=== PATIENT | male | born 1955 | race Caucasian/White ===

== ENCOUNTER 2021-04-06 09:02 | Emergency (ER) | payer OTHER, SELFPAY ==
[2021-04-06 09:05] VITALS: BP 173/96; PULSE 70; RESP 16; TEMP 35.9; O2SAT 95; BMI 43.0
--- NOTE | 2021-04-06 10:28 | RAD_ITS ---
STUDY: X-RAY CHEST REASON FOR EXAM: Male, 65 years old. Headaches. Altered gait. TECHNIQUE: Single AP portable view of the chest. COMPARISON: None. FINDINGS: EKG electrodes are seen. The lungs are clear and expanded. There is no demonstrated pleural abnormality. Sternal cerclage wires and vascular clips are present from a prior sternotomy and coronary artery bypass graft procedure (CABG). Normal mediastinum and sabrina. Normal visualized pulmonary arteries. Normal visualized aortic arch and descending thoracic aorta. Normal visualized thoracic spine. Normal visualized ribs, clavicles, and shoulders. There is no demonstrated abnormality of the visualized soft tissue structures of the upper abdomen. RAD/Chest 1 View (Portable) IMPRESSION: No acute abnormality is seen. Electronically Signed: Jay Jay Maynard MD at 11:14 EDT , Service support ,
--- NOTE | 2021-04-06 10:28 | CT_ITS ---
STUDY: CT BRAIN WITHOUT CONTRAST REASON FOR EXAM: Male, 65 years old. Altered mental status RADIATION DOSAGE (If Supplied By Facility): CTDIvol = ( 44.99 ) mGy, DLP = ( 829.85 ) mGycm TECHNIQUE: Transaxial CT imaging of the brain was performed without administration of intravenous contrast material. Individualized dose optimization techniques were used for this CT. COMPARISON: No relevant priors. FINDINGS: Normal soft tissue structures. Normal calvarium. There is evidence of a moderate-sized acute on subacute right subdural hematoma overlying the right frontal temporal and parietal lobes. The largest width of the subdural measures 1.9 cm. There is evidence of a midline shift from right to left measuring 1.3 cm. There is a dilatation of the left temporal horn and decreased size of the right temporal horn. This is indicative of mass effect and possible early herniation. Normal basal ganglia and thalami. Normal brainstem. Normal cerebellum. Normal visualized paranasal sinuses. CT/Brain/Head without Contrast IMPRESSION: Moderate size acute on subacute right subdural hematoma overlying the right frontotemporal and parietal lobes with shift of the midline from right to left of 1.3 centimeter. There is compression of the right temporal horn and dilatation of left temporal horn. Herniation should be ruled out. N.B. : The above Results were Read Back by Jay Jay Maynard MD to Shahbaz Prado MD, and understanding confirmed on 04/06/2021 11:11:52 (ET). Electronically Signed: Jay Jay Maynard MD at 11:13 EDT , Service support ,
--- NOTE | 2021-04-06 10:28 | EKG12_ITS ---
Test Reason : CONFUSON Blood Pressure : / mmHG Vent. Rate : 072 BPM Atrial Rate : 072 BPM P-R Int : 150 ms QRS Dur : 090 ms QT Int : 380 ms P-R-T Axes : 044 008 120 degrees QTc Int : 416 ms Normal sinus rhythm T wave abnormality, consider lateral ischemia Abnormal ECG Confirmed by JORGE REESE, SUGEY ([id number]), photographic editor [employer]ENCH ([id number]) on 04/07/2021 9:03:12 AM Referred By: DORA Confirmed By:SUGEY PATEL MD
--- NOTE | 2021-04-06 10:35 | EDS_ITS ---
HPI History of Present Illness Chief Complaint: Confusion Informant: patient Narrative Narrative: 65-year-old male presents to the emergency department with altered mental status. states that he had been having occipital headaches. She notes that last week he had a dental extraction and the headaches have been more temporal now on the right side. She states that his gait has become more shuffling. He is having episodes where he is very forgetful about conversations he has had. He has gotten lost driving. She states that he saw primary care yesterday have a CT scan scheduled for later this week. Patient denies any vision changes. He is able to use utensils and write appropriately. Only new medication with Motrin following the tooth extraction. Patient notes that on Monday while in [facility] he fell off a picnic table and hit his head. He denies any loss of consciousness. He is not on any blood thinners. The patient states that he does not recall any other head injury. [facility] Medical History HLD (hyperlipidemia) HTN (hypertension) Home Medications B-complex with vitamin C [Vitamin B Complex-C] 1 tab PO DAILY 04/06/21 [History Last Taken Unknown] celecoxib 200 mg PO DAILY 04/06/21 [History Last Taken Unknown] coenzyme Q10 [CoQ-10] 200 mg PO DAILY 04/06/21 [History Last Taken Unknown] diphenhydramine-acetaminophen [Tylenol PM Extra Strength] 2 tab PO QHS PRN 04/06/21 [History Last Taken Unknown] metoprolol succinate 100 mg PO DAILY 04/06/21 [History Last Taken Unknown] rosuvastatin [Crestor] 10 mg PO DAILY 04/06/21 [History Last Taken Unknown] Allergy/AdvReac Type Severity Reaction Status Date / Time Sulfa (Sulfonamide Allergy Hives Verified 04/06/21 09:08 Antibiotics) Surgical History H/O mitral valve repair Social History (Updated 04/06/21 @ 10:[address] Shahbaz Prado DO) Smoking Status: Former smoker substance use type: does not use ROS ROS ED Constitutional Constitutional ED: Denies chills or weight loss Eyes Eyes: Denies change in vision or diplopia ENT ENT ED: Denies ear pain, rhinorrhea or sore throat Cardiovascular Cardiovascular: Denies chest pain, orthopnea, palpitations or racing heartbeat Respiratory/Chest Respiratory/Chest: Denies cough, dyspnea or orthopnea Gastrointestinal Gastrointestinal: Denies abdominal pain, diarrhea, nausea or vomiting Genitourinary Genitourinary ED: Denies dysuria, hematuria or urinary frequency Musculoskeletal Musculoskeletal: Denies arthralgias or myalgias Integumentary Denies abscess or rash Neurologic Neurologic: Reports headache(s) and other Details: Altered gait Confusion ; Denies weakness Psychiatric Psychiatric: Denies anxiety, depression, suicidal ideation or suicidal thoughts Endocrine Endocrinology: Denies polydipsia, polyphagia or polyuria Allergic/Immunologic Allergic/Immunologic ED: Denies mouth swelling, tongue swelling or urticaria EXAM Physical Exam Const Vital Signs: 04/06/21 09:05 04/06/21 11:02 Temperature 96.6 F L Temperature Source Temporal Pulse Rate 70 66 Respiratory Rate 16 16 Blood Pressure 173/96 H Blood Pressure Mean 121 Pulse Ox 95 93 Oxygen Delivery Method Room Air Room Air Positive well nourished, well developed and obese General Appearance ED: well developed Nutritional Appearance: obese HEENT Reports normocephalic, head/scalp atraumatic, TM's clear and moist mucous me mbranes Negative for trauma Tympanic Membrane ED: Yes TM's clear Eyes PERRL and EOMs intact bilaterally Neck no lymphadenopathy, supple and no JVD Resp normal respiratory effort and clear to auscultation bilaterally Cardio regular rate, regular rhythm and no murmurs GI normal to inspection, nondistended, normoactive bowel sounds and non-tender Palpation: soft Back/Spine no CVA tenderness and normal ROM Extremity normal to inspection General Extremety ED: Negative for edema General Extremity: Negative for edema Neuro oriented x3 and CN's II-XII intact bilaterally Sensorium / Orientation: alert Motor Exam: strength 5/5 throughout Psych mental status grossly normal Mood & Affect: Negative for depressed or tearful Skin no rashes or lesions noted and no wounds MDM MDM MDM Narrative Medical decision making narrative: Patient's blood work returns and is essentially normal. Normal coags. My interpretation of the chest x-ray is no acute process. CT the brain demonstrates acute on chronic subdural hematoma on the right with 1.3 cm of midline shift and early signs of uncal herniation. Patient is are updated. They are requesting [facility]. I contacted [facility] and they are on diversion. I contacted [facility] and they will accept. Lab Data Attestation: I reviewed the patient's lab results. Labs: Laboratory Results - last 24 hr 04/06/21 04/06/21 04/06/21 09:16 09:16 09:16 WBC 6.9 RBC 4.69 Hgb 14.3 Hct 41.5 MCV 88.5 MCH 30.5 MCHC 34.5 RDW Std Deviation 43.7 RDW Coeff of Dia 13.5 Plt Count 232 MPV 10.9 Immature Gran % (Auto) 0.600 Neut % (Auto) 53.4 Lymph % (Auto) 25.5 Kings % (Auto) 8.9 Eos % (Auto) 10.9 H Baso % (Auto) 0.7 Absolute Neuts (auto) 3.7 Absolute Lymphs (auto) 1.76 Nucleated RBC % 0 PT 11.9 INR 0.9 APTT 28.8 Sodium 142 Potassium 4.1 Chloride 106 Carbon Dioxide 28.0 Anion Gap 8 BUN 13 Creatinine 1.05 Estim Creat Clear Calc 72.42 Est GFR (MDRD) Af Amer 91 Est GFR (MDRD) Non-Af 75 BUN/Creatinine Ratio 12.4 Glucose 146 H Calcium 9.0 Total Bilirubin 0.40 AST 27 ALT 45 Alkaline Phosphatase 85 Troponin I High Sens 11 Total Protein 7.3 Albumin 3.7 Globulin 3.6 Albumin/Globulin Ratio 1.0 Urine Color Urine Clarity Urine pH Ur Specific [place] Urine Protein Urine Glucose (UA) Urine Ketones Urine Occult Blood Urine Nitrite Urine Bilirubin Urine Urobilinogen Ur Leukocyte Esterase Urine RBC Urine WBC Ur Squamous Epith Cells Urine Bacteria Urine Mucus 04/06/21 10:30 WBC RBC Hgb Hct MCV MCH MCHC RDW Std Deviation RDW Coeff of Dia Plt Count MPV Immature Gran % (Auto) Neut % (Auto) Lymph % (Auto) Kings % (Auto) Eos % (Auto) Baso % (Auto) Absolute Neuts (auto) Absolute Lymphs (auto) Nucleated RBC % PT INR APTT Sodium Potassium Chloride Carbon Dioxide Anion Gap BUN Creatinine Estim Creat Clear Calc Est GFR (MDRD) Af Amer Est GFR (MDRD) Non-Af BUN/Creatinine Ratio Glucose Calcium Total Bilirubin AST ALT Alkaline Phosphatase Troponin I High Sens Total Protein Albumin Globulin Albumin/Globulin Ratio Urine Color Yellow Urine Clarity Clear Urine pH 6.5 Ur Specific [place] 1.010 Urine Protein Negative Urine Glucose (UA) Normal Urine Ketones Negative Urine Occult Blood Negative Urine Nitrite Negative Urine Bilirubin Negative Urine Urobilinogen Normal Ur Leukocyte Esterase Negative Urine RBC 0 SEEN Urine WBC 0-5 SEEN Ur Squamous Epith Cells 0 SEEN Urine Bacteria 0 SEEN Urine Mucus 0 SEEN Radiography Diagnostic Testing: Clinical Impression(s) from Imaging Studies Brain CT 04/06/21 10:28 IMPRESSION: Moderate size acute on subacute right subdural hematoma overlying the right frontotemporal and parietal lobes with shift of the midline from right to left of 1.3 centimeter. There is compression of the right temporal horn and dilatation of left temporal horn. Herniation should be ruled out. N.B. : The above Results were Read Back by Jay Jay Maynard MD to Shahbaz Prado MD, and understanding confirmed on 04/06/2021 11:11:52 (ET). Electronically Signed: Jay Jay Maynard MD at 11:13 EDT , Service support , ADDENDUM: 04/06/21 1139 IMPRESSION: Moderate size acute on subacute right subdural hematoma overlying the right frontotemporal and parietal lobes with shift of the midline from right to left of 1.3 centimeter. There is compression of the right temporal horn and dilatation of left temporal horn. Herniation should be ruled out. N.B. : The above Results were Read Back by Jay Jay Maynard MD to Shahbaz Prado MD, and understanding confirmed on 04/06/2021 11:11:52 (ET). Electronically Signed: Jay Jay Maynard MD at 11:13 EDT , Service support , Chest X-Ray 04/06/21 10:28 IMPRESSION: No acute abnormality is seen. Electronically Signed: Jay Jay Maynard MD at 11:14 EDT , Service support , EKG Initial EKG: Attestation: I personally reviewed and interpreted this EKG as follows: Comments: Normal sinus rhythm with a ventricular rate of 72 bpm Critical Care Time Critical Care Time: Yes Critical care time (excluding procedures): 30-74 minutes (31 MIN), Including time spent:, Discussing w/Patient &/or Family/Night Order Selector, Discussing w/Consultants, Arranging Admission or Transfer and Performing Direct Patient Care at Bedside Discharge Plan Triage Chief Complaint: Confusion ED Provider: Shahbaz Prado Dx/Rx/DC Orders Clinical Impression: Acute subdural hematoma, Uncal herniation, Acute alteration in mental status Prescriptions: No Action celecoxib 200 mg Capsule 200 mg PO DAILY RF: 0 diphenhydramine-acetaminophen [Tylenol PM Extra Strength] 25-500 mg Tablet 2 tab PO QHS PRN (Reason: Pain) RF: 0 B-complex with vitamin C [Vitamin B Complex-C] Tablet 1 tab PO DAILY RF: 0 rosuvastatin [Crestor] 10 mg Tablet 10 mg PO DAILY RF: 0 coenzyme Q10 [CoQ-10] 100 mg Capsule 200 mg PO DAILY RF: 0 metoprolol succinate 100 mg Capsule,Sprinkle,Er 24hr 100 mg PO DAILY RF: 0 Primary Care Provider: Omero Whitten Disposition Disposition: Acute Care Hospital Discharge Location: [facility]
[2021-04-06 10:37] LABS: Absolute Lymphocyte Count 1.76 X10^3/uL (0.83-4.51); Absolute Neutrophil Count 3.7 X10^3/uL (2.0-7.7); Basophil# 0.05 X10^3/uL; Basophil% 0.7 % (0-1); Eosinophil# 0.75 X10^3/uL; Eosinophils% 10.9 % (0-5); Hematocrit 41.5 % (40-54); Hemoglobin 14.3 g/dL (13.0-16.5); Lymphocyte # 1.76 X10^3/ul (0.83-4.51); Lymphocyte % 25.5 % (19-41); Mean Corp Hgb Conc 34.5 g/dL (32-36); Mean Corpuscular Hgb 30.5 pg (27.0-32.0); Mean Corpuscular Volume 88.5 fL (80-94); Mean Platelet Vol. 10.9 fl (6.2-12.0); Monocyte# 0.61 X10^3/uL; Monocyte% 8.9 % (0-10); NRBC Flagged by Analyzer 0 % (0-5); Neutrophil # 3.68 X10^3/uL (2.7-7.7); Neutrophil % 53.4 % (47-70); Platelet Count 232 K/mm3 (150-450); RBC Distribution Width CV 13.5 % (11.6-14.6); RBC Distribution Width SD 43.7 fl (35.1-43.9); Red Blood Count 4.69 M/mm3 (4.6-6.2); White Blood Count 6.9 K/mm3 (4.4-11.0)
[2021-04-06 10:38] LABS: Bacteria 0 SEEN /hpf (None Seen); Mucous, Urine 0 SEEN /hpf (<or=2+); Red Blood Cells-Urine 0 SEEN /hpf (0-5); Squamous Epithelial Cells - UA 0 SEEN /hpf (0-5)
[2021-04-06 10:43] LABS: Color, Urine Yellow (Yellow); Glucose, Dipstick Normal (Normal); Ketone-Dipstick Negative (Negative); Leukocyte Esterase-Dipstick Negative /ul (Negative); Nitrite-Dipstick Negative (Negative); Occult Blood-Urine Negative /ul (Negative); Protein-Dipstick Negative (Negative); Urine Bilirubin Dipstick Negative (Negative); Urine Clarity Clear (Clear); Urine Urobilinogen Normal (Normal); Urine pH 6.5 (5.0 - 8.0)
[2021-04-06 10:48] LABS: AST(SGOT) 27 U/L (15-37); Alanine Aminotransfer ALT/SGPT 45 U/L (16-61); Albumin, Serum 3.7 g/dL (3.2-5.0); Alkaline Phosphatase 85 U/L (45-117); Anion Gap 8 (5-15); BUN 13 mg/dL (7-18); BUN/Creat Ratio 12.4 RATIO (10-20); Chloride 106 mmol/L (98-107); Creatinine, Serum 1.05 mg/dL (0.70-1.30); EST Glomerular Filtration Rate 75 mL/min (>60); Est Glom Filt Rate - Afr Amer 91 mL/min (>60); Estimated Creatinine Clearance 72.42 ml/min; Globulin 3.6 g/dL (2.2-4.2); Glucose 146 mg/dL (74-106); Potassium 4.1 mmol/L (3.5-5.1); Protein, Total 7.3 g/dL (6.4-8.2); Sodium Level 142 mmol/L (136-145); Troponin-I HS 11 pg/mL (3.0-78.0)
[2021-04-06 10:52] LABS: White Blood Cells 0-5 SEEN /hpf (0-5)
[2021-04-06 11:02] VITALS: PULSE 66; RESP 16; O2SAT 93
[2021-04-06 11:10] LABS: International Normalized Ratio 0.9; Partial Thromboplast Time 28.8 Seconds (24.1-36.2); Prothrombin Time (Protime)PT. 11.9 SECONDS (11.7-14.9)
[2021-04-06 12:00] VITALS: BP 159/94; PULSE 70; RESP 21; O2SAT 96
[2021-04-06] MEDS: levETIRAcetam IV 1,000 MG/100 ML BAG 400 MG IV (12:01)
--- NOTE | 2021-04-06 12:37 | CHAPLAIN ---
Type of Pastoral Visit ___ Initial Visit ___ Follow-up Visit ___ On-call Visit ___ General Patient Visit ___ Spiritual Assessment ___ Family Conference ___ Bereavement ___ Rapid Response ___ Code Blue _x__ Other (describe below) Pastoral Care Referral From ___ Patient ___ Family ___ Nurse ___ Physician ___ Director Of Entertainment ___ Christian Ministries Professor _x__ Other (describe below) Sacrament/Intervention ___ Active listening ___ Anointing ___ Sabianism ___ Bereavement ___ Communion ___ Danielle exploration ___ ___ Life review _x__ Prayer ___ Reconciliation ___ Sacrament of Sick _x__ Supportive presence ___ Wedding ___ Other (describe below) Pastoral Comments helicopter landed at hospital and this cable installer sought out reason and to assess need for spiritual care; found patient and family in ED; pt is alert and welcomes support and prayer; also welcomes support; transport team was ready to make transfer
== END 2021-04-06 12:14 | disposition short-term general hospital (02) ==
PROVIDERS: Emergency Provider Emergency Medicine; PCP Family Medicine
DX: S06.5X0A Traumatic subdural hemorrhage without loss of consciousness, initial encounter (principal); S06.A1XA Traumatic brain compression with herniation, initial encounter; E78.5 Hyperlipidemia, unspecified; I10 Essential (primary) hypertension; Z79.899 Other long term (current) drug therapy; Z87.891 Personal history of nicotine dependence; W17.89XA Other fall from one level to another, initial encounter; Y93.89 Activity, other specified; Y92.89 Other specified places as the place of occurrence of the external cause; Y99.8 Other external cause status
CPT/HCPCS: 70450; 71045; 80053; 81001; 84484; 85025; 85610; 85730; 93005; 99285; A4216

== ENCOUNTER 2021-10-07 20:08 | Emergency (ER) | payer OTHER, SELFPAY ==
[2021-10-07 20:09] VITALS: BP 218/94; PULSE 114; RESP 22; TEMP 37.9; O2SAT 94; BMI 46.2
--- NOTE | 2021-10-07 20:19 | EKG12_ITS ---
Test Reason : DYSRHYTHMIA Blood Pressure : / mmHG Vent. Rate : 106 BPM Atrial Rate : 106 BPM P-R Int : 136 ms QRS Dur : 088 ms QT Int : 314 ms P-R-T Axes : 055 028 191 degrees QTc Int : [address] & T wave abnormality, consider inferolateral ischemia Abnormal ECG Confirmed by KELSEY REESE, MAGALIS ([id number]), production editor [employer]EN[employer] ([id number]) on 10/11/2021 1:53:45 PM Referred By: JAY Confirmed By:ASHLEY COLE MD
--- NOTE | 2021-10-07 20:21 | EDS_ITS ---
HPI History of Present Illness Chief Complaint: Shortness of Breath Detail of Chief Complaint: Shortness of breath, nonproductive cough and fever Informant: patient and spouse/S.O. Onset/Context/Timing Onset: Yesterday Context: sudden Timing: Continuous and Waxes and wanes Quality: Positive for Dyspnea on exertion; Negative for Orthopnea, PND and Wheezing Current Severity: Mild Maximum Severity: Moderate Worsened by: Exertion; Not Worsened By Lying flat and Coughing Relieved by: Nothing Associated Symptoms cough, rhinorrhea, post nasal drip, fever, chills and sweats; Negative for clear sputum, white sputum, yellow sputum or green sputum Chest Pain: Positive for None Narrative Narrative: Patient is a 66-year-old male with history of coronary disease, status post valve replacement, hypertension and hypercholesterolemia who presents because of increasing shortness of breath since yesterday. He was exposed to his brother this past who tested positive for Covid on Monday. He had a negative Covid test PE Risk Factors: Negative for Cancer, OCP + Smoking + > 35, Prior DVT or PE, Recent immobilization, Recent surgery and Recent travel Prior similar symptoms: No Recent Illness/Hospitalization: No PFSH PFS Medical History (Updated 10/07/21 @ 21:[address] Arnulfo Leon MD) Coronary artery disease HLD (hyperlipidemia) HTN (hypertension) Home Medications B-complex with vitamin C [Vitamin B Complex-C] 1 tab PO DAILY 04/06/21 [History Last Taken Unknown] diphenhydramine-acetaminophen [Tylenol PM Extra Strength] 2 tab PO QHS PRN 04/06/21 [History Last Taken Unknown] metoprolol succinate 100 mg PO DAILY 04/06/21 [History Last Taken Unknown] rosuvastatin [Crestor] 10 mg PO DAILY 04/06/21 [History Last Taken Unknown] Tumurix 2,000 mg PO.IVFORM DAILY 10/07/21 [History Last Taken Unknown] aspirin [Aspir-Low] 81 mg PO DAILY 10/07/21 [History Last Taken Unknown] lisinopril 5 mg PO DAILY 10/07/21 [History Last Taken Unknown] ticagrelor [Brilinta] 90 mg PO BID 10/07/21 [History Last Taken Unknown] Allergy/AdvReac Type Severity Reaction Status Date / Time Sulfa (Sulfonamide Allergy Hives Verified 10/07/21 20:09 Antibiotics) Surgical History H/O mitral valve repair H/O shoulder surgery Hx of heart artery stent Social History (Updated 10/07/21 @ 20:[address] Arnulfo Leon MD) household members: spouse Smoking Status: Former smoker substance use type: does not use ROS ROS ED Constitutional Constitutional ED: Reports chills, fever(s) and sweats; Denies weight loss Eyes Eyes: Denies blurry vision, change in vision or diplopia ENT ENT ED: Reports rhinorrhea and sore throat; Denies ear pain Cardiovascular Cardiovascular: Denies chest pain, orthopnea, palpitations, paroxysmal nocturnal dyspnea or racing heartbeat Respiratory/Chest Respiratory/Chest: Reports cough, dyspnea and dyspnea on exertion; Denies orthopnea, paroxysmal nocturnal dyspnea or sputum Gastrointestinal Gastrointestinal: Reports nausea; Denies abdominal pain, constipation, diarrhea, melena or vomiting Genitourinary Genitourinary ED: Denies dysuria, hematuria or urinary frequency Musculoskeletal Musculoskeletal: Reports myalgias; Denies arthralgias, back pain or neck pain Integumentary Denies Abrasions or rash Neurologic Neurologic: Reports weakness; Denies headache(s) or paresthesias Endocrine Endocrinology: Denies polydipsia, polyphagia or polyuria Hematologic/Lymphatic Hematologic/Lymphatic: Denies easy bleeding or easy bruising EXAM Physical Exam Const Vital Signs: 10/07/21 20:09 10/07/21 20:16 10/07/21 21:09 Temperature 100.2 F H Temperature Source Temporal Pulse Rate 114 H 106 H Respiratory Rate 22 H 20 H Respiratory Effort Normal Non-Labored Respiratory Depth Normal Respiratory Pattern Normal Blood Pressure 218/94 H 167/81 H Blood Pressure Mean 135 109 Pulse Ox 94 95 Oxygen Delivery Method Room Air Room Air Room Air 10/07/21 21:47 Temperature Temperature Source Pulse Rate 97 Respiratory Rate 22 H Respiratory Effort Respiratory Depth Respiratory Pattern Blood Pressure 160/77 H Blood Pressure Mean 104 Pulse Ox 95 Oxygen Delivery Method Room Air Positive well nourished, well developed and obese General Appearance ED: well developed; Negative for NAD or pallor Nutritional Appearance: obese HEENT Reports TM's clear and dry mucous membranes HEENT Narrative: Uvula midline. Posterior pharynx out erythema or exudate. There is no angioedema. atraumatic; Negative for tenderness Tympanic Membrane ED: Yes TM's clear Mouth ED: Yes dry mucous membranes Mouth: dry mucous membranes Eyes PERRL and EOMs intact bilaterally General Eye ED: Negative for pale conjunctiva or scleral icterus Neck no lymphadenopathy, supple, no meningeal signs and no JVD Resp No normal respiratory effort and No clear to auscultation bilaterally Auscultation: rales bilateral base and diminished lung sounds; Negative for rhonchi or wheezes Cardio regular rhythm, S1 normal heart sound, S2 normal heart sound and no murmurs Rate: tachycardic GI non-tender, non-distended and no masses Auscultation: normoactive bowel sounds Palpation: soft Back/Spine no CVA tenderness and normal to inspection Extremity normal to inspection Extremity Narrative: Pitting edema of approximately 2 to 4 mm General Extremety ED: Yes edema; Negative for tenderness General Extremity: edema Neuro oriented x3, CN's II-XII intact bilaterally and no sensory deficits noted [place] [address] Coma Scale: document GCS findings Spontaneous Obeys Commands Oriented 15 Sensorium / Orientation: alert Motor Exam: strength 5/5 throughout Skin no wounds Skin Narrative: Patient is diaphoretic. General Skin Exam: Negative for jaundice or pallor Lesions: no lesions Rashes: no rashes MDM MDM MDM Narrative Medical decision making narrative: Suspect patient has COVID. Will obtain Covid test. Pharmacist was called to determine if there is paxlovid available for out patient treatment of Covid. Patient is not hypoxic. He is tachypneic tachycardic and febrile. Appropriate work-up was undertaken to rule out anemia, renal dysfunction and assess glucose since he has questionable borderline diabetes Since patient is on Proventil and this cannot be discontinued the Paxlovid is contraindicated with a strong interaction. Therefore treatment is symptomatic. Patient is also on a statin and this would have to be discontinued for 8 days. Lab Data Attestation: I reviewed the patient's lab results. Labs: Laboratory Results - last 24 hr 10/07/21 10/07/21 10/07/21 20:40 20:40 20:45 WBC Cancelled Corrected WBC Cancelled RBC Cancelled Hgb Cancelled Hct Cancelled MCV Cancelled MCH Cancelled MCHC Cancelled RDW Std Deviation Cancelled RDW Coeff of Dia Cancelled Plt Count Cancelled MPV Cancelled Immature Gran % (Auto) Cancelled Neut % (Auto) Cancelled Lymph % (Auto) Cancelled Sherman % (Auto) Cancelled Eos % (Auto) Cancelled Baso % (Auto) Cancelled Absolute Neuts (auto) Cancelled Absolute Lymphs (auto) Cancelled Total Counted Cancelled Neutrophils % (Manual) Cancelled Band Neutrophils % Cancelled Lymphocytes % (Manual) Cancelled Monocytes % (Manual) Cancelled Eosinophils % (Manual) Cancelled Basophils % (Manual) Cancelled Metamyelocytes % Cancelled Myelocytes % Cancelled Promyelocytes % Cancelled Blast Cells % Cancelled Plasma Cell % (Manual) Cancelled Other Cells % Cancelled Nucleated RBC % Cancelled Nucleated RBCs/100 WBC Cancelled Differential Comment Cancelled Diff Path Review Cancelled Hypersegmented Neuts Cancelled Atypical Lymphocytes Cancelled Reactive Lymphocytes Cancelled Smudge Cells Cancelled Toxic Granulation Cancelled Toxic Vacuolation Cancelled Dohle Bodies Cancelled Grady Rods Cancelled Platelet Estimate Cancelled Plt Morphology Comment Cancelled RBC Morphology Cancelled Polychromasia Cancelled Hypochromasia Cancelled Poikilocytosis Cancelled Basophilic Stippling Cancelled Anisocytosis Cancelled Microcytosis Cancelled Macrocytosis Cancelled Spherocytes Cancelled Sickle Cells Cancelled Target Cells Cancelled Tear Drop Cells Cancelled Ovalocytes Cancelled Stomatocytes Cancelled [place]pher[place] Bodies Cancelled Osmar Cells Cancelled Bite Cells Cancelled Crenated Cell Cancelled Acanthocytes (Spur) Cancelled Rouleaux Cancelled Schistocytes Cancelled Sodium 139 Potassium 4.1 Chloride 109 H Carbon Dioxide 24.0 Anion Gap 6 BUN 12 Creatinine 1.15 Estim Creat Clear Calc 61.13 Est GFR (MDRD) Af Amer 82 Est GFR (MDRD) Non-Af 68 BUN/Creatinine Ratio 10.4 Glucose 187 H Lactic Acid 1.7 Calcium 8.6 Total Bilirubin 0.30 AST 29 ALT 40 Alkaline Phosphatase 95 Total Protein 6.9 Albumin 3.5 Globulin 3.4 Albumin/Globulin Ratio 1.0 10/07/21 21:17 WBC 6.1 Corrected WBC RBC 4.27 L Hgb 13.0 Hct 38.8 L MCV 90.9 MCH 30.4 MCHC 33.5 RDW Std Deviation 42.6 RDW Coeff of Dia 13.0 Plt Count 169 MPV 10.7 Immature Gran % (Auto) 0.500 Neut % (Auto) 68.2 Lymph % (Auto) 16.3 L Sherman % (Auto) 13.2 H Eos % (Auto) 1.6 Baso % (Auto) 0.2 Absolute Neuts (auto) 4.1 Absolute Lymphs (auto) 0.99 Total Counted Neutrophils % (Manual) Band Neutrophils % Lymphocytes % (Manual) Monocytes % (Manual) Eosinophils % (Manual) Basophils % (Manual) Metamyelocytes % Myelocytes % Promyelocytes % Blast Cells % Plasma Cell % (Manual) Other Cells % Nucleated RBC % 0 Nucleated RBCs/100 WBC Differential Comment Diff Path Review Hypersegmented Neuts Atypical Lymphocytes Reactive Lymphocytes Smudge Cells Toxic Granulation Toxic Vacuolation Dohle Bodies Grady Rods Platelet Estimate Plt Morphology Comment RBC Morphology Polychromasia Hypochromasia Poikilocytosis Basophilic Stippling Anisocytosis Microcytosis Macrocytosis Spherocytes Sickle Cells Target Cells Tear Drop Cells Ovalocytes Stomatocytes [place]pher[place] Bodies Osmar Cells Bite Cells Crenated Cell Acanthocytes (Spur) Rouleaux Schistocytes Sodium Potassium Chloride Carbon Dioxide Anion Gap BUN Creatinine Estim Creat Clear Calc Est GFR (MDRD) Af Amer Est GFR (MDRD) Non-Af BUN/Creatinine Ratio Glucose Lactic Acid Calcium Total Bilirubin AST ALT Alkaline Phosphatase Total Protein Albumin Globulin Albumin/Globulin Ratio Radiography Chest X-Ray - ED: 1 View (Cardiac silhouette and size normal. Lung parenchyma is unremarkable. Osseous structures unremarkable. The chest x-ray is independently interpreted by me at 2114.) and Read by ED Physician EKG Initial EKG: Attestation: I personally reviewed and interpreted this EKG as follows: Interpretation: Sinus Tachycardia (Ventricular rate 106. ND interval is 136 ms. Cures duration 88 ms. QT duration 3 and 14 ms. Flatgap is normal. There is ST-T wave abnormality in the lateral leads. There is no evidence of acute ST elevation.) Discharge Plan Triage Chief Complaint: Shortness of Breath ED Provider: Anrulfo Leon Dx/Rx/DC Orders Clinical Impression: COVID-19 virus infection, Sinus tachycardia, Anticoagulant long-term use Instructions: Caring for Someone Who Has COVID-19 Prescriptions: No Action diphenhydramine-acetaminophen [Tylenol PM Extra Strength] 25-500 mg Tablet 2 tab PO QHS PRN (Reason: Pain) RF: 0 B-complex with vitamin C [Vitamin B Complex-C] Tablet 1 tab PO DAILY RF: 0 rosuvastatin [Crestor] 10 mg Tablet 10 mg PO DAILY RF: 0 metoprolol succinate 100 mg Capsule,Sprinkle,Er 24hr 100 mg PO DAILY RF: 0 Brilinta 90 mg tablet 90 mg PO BID RF: 0 lisinopril 5 mg tablet 5 mg PO DAILY RF: 0 aspirin [Aspir-Low] 81 mg Tablet,Delayed Release (Dr/Ec) 81 mg PO DAILY RF: 0 Tumurix 2,000 mg PO.IVFORM DAILY RF: 0 Primary Care Provider: Mateo Daily Referrals: Matoe Daily MD [Primary Care Provider] - 10-14 Days if not better Disposition Disposition: Home, Self Care
--- NOTE | 2021-10-07 21:05 | RAD_ITS ---
STUDY: AP PORTABLE UPRIGHT CHEST X-RAY OF 9 HOURS ON 10/07/2021 REASON FOR EXAM: 66-year-old male with dyspnea, fever, and positive home Covid test. TECHNIQUE: A single view AP portable upright chest x-ray was performed per protocol. COMPARISON: 04/06/2021. FINDINGS: Mildly lordotic view. Previous sternal thoracotomy. No cardiomegaly. No pulmonary infiltrates, atelectasis, effusion, or pulmonary mass lesions. There are no current findings of Covid pneumonias. No significant interval change since previous study of 04/06/2021. RAD/Chest 1 View (Portable) IMPRESSION: 1. No current evidence of Covid pneumonias. 2. No other findings of active cardiopulmonary disease. 3. Previous sternal thoracotomy. 4. No significant interval change since the previous study of 04/06/2021. Electronically Signed: Norbert Lopes MD at 22:34 EDT ,
[2021-10-07 21:08] LABS: AST(SGOT) 29 U/L (15-37); Alanine Aminotransfer ALT/SGPT 40 U/L (16-61); Albumin, Serum 3.5 g/dL (3.2-5.0); Alkaline Phosphatase 95 U/L (45-117); Anion Gap 6 (5-15); BUN 12 mg/dL (7-18); BUN/Creat Ratio 10.4 RATIO (10-20); Calcium,Total 8.6 mg/dL (8.5-10.1); Chloride 109 mmol/L (98-107); Creatinine, Serum 1.15 mg/dL (0.70-1.30); EST Glomerular Filtration Rate 68 mL/min (>60); Est Glom Filt Rate - Afr Amer 82 mL/min (>60); Estimated Creatinine Clearance 61.13 ml/min; Globulin 3.4 g/dL (2.2-4.2); Glucose 187 mg/dL (74-106); Potassium 4.1 mmol/L (3.5-5.1); Protein, Total 6.9 g/dL (6.4-8.2); Sodium Level 139 mmol/L (136-145)
[2021-10-07 21:09] VITALS: BP 167/81; PULSE 106; RESP 20; O2SAT 95
[2021-10-07 21:23] LABS: Lactic Acid 1.7 mmol/L (0.4-1.9)
[2021-10-07 21:34] LABS: Absolute Lymphocyte Count 0.99 X10^3/uL (0.83-4.51); Absolute Neutrophil Count 4.1 X10^3/uL (2.0-7.7); Basophil# 0.01 X10^3/uL; Basophil% 0.2 % (0-1); Eosinophils% 1.6 % (0-5); Hematocrit 38.8 % (40-54); Lymphocyte # 0.99 X10^3/ul (0.83-4.51); Lymphocyte % 16.3 % (19-41); Mean Corp Hgb Conc 33.5 g/dL (32-36); Mean Corpuscular Hgb 30.4 pg (27.0-32.0); Mean Corpuscular Volume 90.9 fL (80-94); Mean Platelet Vol. 10.7 fl (6.2-12.0); Monocyte% 13.2 % (0-10); NRBC Flagged by Analyzer 0 % (0-5); Neutrophil # 4.14 X10^3/uL (2.7-7.7); Neutrophil % 68.2 % (47-70); Platelet Count 169 K/mm3 (150-450); RBC Distribution Width SD 42.6 fl (35.1-43.9); Red Blood Count 4.27 M/mm3 (4.6-6.2); White Blood Count 6.1 K/mm3 (4.4-11.0)
[2021-10-07 21:47] VITALS: BP 160/77; PULSE 97; RESP 22; O2SAT 95
[2021-10-07 22:04] VITALS: BP 170/79; PULSE 100; RESP 20; O2SAT 95
== END 2021-10-07 22:33 | disposition home or self-care (01) ==
PROVIDERS: Emergency Provider Emergency Medicine; PCP Family Medicine; Visit Provider Emergency Medicine
DX: U07.1 COVID-19 (principal); Z87.891 Personal history of nicotine dependence; R00.0 Tachycardia, unspecified; I10 Essential (primary) hypertension; Z79.01 Long term (current) use of anticoagulants; E78.5 Hyperlipidemia, unspecified; I25.10 Atherosclerotic heart disease of native coronary artery without angina pectoris; Z95.2 Presence of prosthetic heart valve; Z79.82 Long term (current) use of aspirin; Z79.899 Other long term (current) drug therapy
CPT/HCPCS: 71045; 80053; 83605; 85025; 87811; 93005; 99284; A4216

== ENCOUNTER 2021-10-22 12:54 | Emergency (ER) | payer MEDICARE, SELFPAY ==
[2021-10-22 12:55] VITALS: BP 172/93; PULSE 74; RESP 20; TEMP 36.6; O2SAT 96; BMI 45.6
[2021-10-22 13:08] VITALS: O2SAT 97
--- NOTE | 2021-10-22 13:15 | RAD_ITS ---
STUDY: X-RAY - SOFT TISSUE NECK REASON FOR EXAM: Male, 66 years old. Trouble w/ inspiration TECHNIQUE: 2 view(s) of the neck were obtained. COMPARISON: None. FINDINGS: Normal visualized nasopharynx, oropharynx, hypopharynx. Normal epiglottis. Normal visualized subglottic tracheal air column. Normal prevertebral soft tissue structures. Normal visualized osseous structures. There is no demonstrated radiopaque foreign body. There are atherosclerotic calcifications of the carotid arteries. RAD/Neck for Soft Tissue IMPRESSION: No acute abnormality is seen. Calcific plaques seen at the origin of the carotid arteries bilaterally. Electronically Signed: Jay Jay Maynard MD at 14:33 EDT ,
--- NOTE | 2021-10-22 13:17 | EX.ED.DYSGE1 ---
HPI History of Present Illness Chief Complaint: Shortness of Breath Detail of Chief Complaint: takes longer to breathe in Informant: patient Onset/Context/Timing Onset: Weeks (2.5) Context: Gradual Onset (started simultaneous w/ COVID illness) Timing: Continuous Quality: like it is difficult to inspire Location: points to top of chest, bottom of neck/throat Current Severity: Moderate Maximum Severity: Moderate Worsened by: nothing Relieved by: nothing Associated Symptoms Associated Symptoms: none; no CP, palpitations, dyspnea, leg swelling Narrative Narrative: Patient ill with COVID 2.5 weeks ago which is when he had positive test, he had this symptom in addition to others. The others of all resolved, he was having some chest discomfort that completely resolved, body aches, cough which is better than before but not resolved, but he has this persistent subjective difficulty taking in a deep breath. The patient states I am able to get air, but it feels like it takes longer to get it in. He states this is not necessarily worse but persistent since he was more ill with COVID. He was not hospitalized for it. When calling his doctor and discussing this over the phone, he was sent to the emergency department today. He states he has an appointment with his doctor Monday morning for this. [facility] Medical History Coronary artery disease HLD (hyperlipidemia) HTN (hypertension) Home Medications B-complex with vitamin C [Vitamin B Complex-C] 1 tab PO DAILY 04/06/21 [History Last Taken Unknown] diphenhydramine-acetaminophen [Tylenol PM Extra Strength] 2 tab PO QHS PRN 04/06/21 [History Last Taken Unknown] metoprolol succinate 100 mg PO DAILY 04/06/21 [History Last Taken Unknown] rosuvastatin [Crestor] 10 mg PO DAILY 04/06/21 [History Last Taken Unknown] Tumurix 2,000 mg PO.IVFORM DAILY 10/07/21 [History Last Taken Unknown] aspirin [Aspir-Low] 81 mg PO DAILY 10/07/21 [History Last Taken Unknown] lisinopril 5 mg PO DAILY 10/07/21 [History Last Taken Unknown] ticagrelor [Brilinta] 90 mg PO BID 10/07/21 [History Last Taken Unknown] Allergy/AdvReac Type Severity Reaction Status Date / Time Sulfa (Sulfonamide Allergy Hives Verified 10/22/21 12:57 Antibiotics) Surgical History H/O mitral valve repair H/O shoulder surgery Hx of heart artery stent Social History household members: spouse Smoking Status: Former smoker substance use type: does not use ROS ROS ED Constitutional Constitutional ED: Denies chills or fever(s) Eyes Eyes: Denies change in vision or diplopia ENT ENT ED: Denies rhinorrhea or sore throat Cardiovascular Cardiovascular: Denies chest pain or palpitations Respiratory/Chest Respiratory/Chest: Reports as per HPI; Denies cough or dyspnea Gastrointestinal Gastrointestinal: Denies abdominal pain, diarrhea, nausea or vomiting Genitourinary Genitourinary ED: Denies dysuria or hematuria Musculoskeletal Musculoskeletal: Denies back pain or neck pain Integumentary Denies abscess or rash Neurologic Neurologic: Denies headache(s), paresthesias or weakness Psychiatric Psychiatric: Denies anxiety or suicidal thoughts EXAM Physical Exam Const Vital Signs: 10/22/21 12:55 10/22/21 13:08 10/22/21 14:31 Temperature 98 F Temperature Source Temporal Pulse Rate 74 68 Respiratory Rate 20 H 16 Respiratory Effort Short of Breath Blood Pressure 172/93 H 142/83 H Blood Pressure Mean 119 102 Pulse Ox 96 96 Oxygen Delivery Method Room Air Room Air Room Air Positive well nourished and well developed General Appearance ED: well developed and NAD HEENT Reports moist mucous membranes normocephalic and atraumatic Mouth ED: Yes oral and palatal mucosa normal, Yes lips normal, Yes tongue normal and No trismus Mouth: oral and palatal mucosa normal, lips normal, tongue normal and No trismus Throat: posterior oropharynx normal and tonsils normal Eyes PERRL and EOMs intact bilaterally Neck full ROM and supple Resp normal respiratory effort and clear to auscultation bilaterally Resp Narrative: No stridor or hoarseness Effort and Inspection: able to speak in complete sentences Cardio regular rate, regular rhythm, no murmurs and peripheral pulses 2+ throughout Rate: Negative for tachycardic GI non-tender and non-distended Auscultation: normoactive bowel sounds Palpation: soft Back/Spine no CVA tenderness General Back: other FROM Extremity normal to inspection General Extremety ED: Negative for edema, pulses abnormal or tenderness General Extremity: Negative for edema or pulses abnormal Neuro oriented x3, CN's II-XII intact bilaterally and no sensory deficits noted Sensorium / Orientation: awake and alert Motor Exam: strength 5/5 throughout Skin no rashes or lesions noted and no wounds MDM MDM MDM Narrative Medical decision making narrative: On my interpretation 2 views of the chest and 2 views of the neck soft tissue x-ray series are all negative for any acute, radiology in agreement. Patient's vital signs are stable except for some hypertension, which did come down with observation, 142/83. I do not think he is having an emergent medical condition, I have reassured the patient, he is safe for outpatient follow-up after the weekend as scheduled. If symptoms persist and do not improve, pulmonary function tests may be helpful and/or bronchoscopy/otolaryngology for nasopharyngeal scoping if he worsens. On reevaluation without treating it specifically, his blood pressure is 142/83. They are concerned about his blood pressure spiking at home, if it does we discussed techniques and repeating it to ensure it is high, and I would recommend taking an extra lisinopril since he is only on 10 mg every night. I would recommend against taking an extra metoprolol succinate since he is on 100 mg and his heart rate is in the low 60s. Also, steroids empirically could be considered for his upper airway symptoms, which he has not been on since he had COVID, however he is prediabetic so as I discussed with him I would not necessarily try those at this time since he is doing well otherwise. It is also possible that transient elevations in blood pressure causing this sensation, as opposed to them being a result of anxiety and dyspnea. We discussed symptoms such as chest pain that accompany very high blood pressures as 1 of several reasons to return to the emergency department. Radiography Diagnostic Testing: Clinical Impression(s) from Imaging Studies Soft Tissue Neck X-Ray 10/22/21 13:15 IMPRESSION: No acute abnormality is seen. Calcific plaques seen at the origin of the carotid arteries bilaterally. Electronically Signed: Jay Jay Maynard MD at 14:33 EDT , Chest X-Ray 10/22/21 13:55 IMPRESSION: Nonacute portable x-ray examination of the chest. Electronically Signed: Miguel Cavanaugh MD ([place]) at 14:13 EDT Reading Location ID and State: / [place] , Service support , Discharge Plan Triage Chief Complaint: Shortness of Breath ED Provider: Nolan Oliveira Dx/Rx/DC Orders Clinical Impression: Altered breathing pattern, Episode of hypertension Instructions: ED Dyspnea Prescriptions: No Action diphenhydramine-acetaminophen [Tylenol PM Extra Strength] 25-500 mg Tablet 2 tab PO QHS PRN (Reason: Pain) RF: 0 B-complex with vitamin C [Vitamin B Complex-C] Tablet 1 tab PO DAILY RF: 0 rosuvastatin [Crestor] 10 mg Tablet 10 mg PO DAILY RF: 0 metoprolol succinate 100 mg Capsule,Sprinkle,Er 24hr 100 mg PO DAILY RF: 0 Brilinta 90 mg tablet 90 mg PO BID RF: 0 lisinopril 5 mg tablet 5 mg PO DAILY RF: 0 aspirin [Aspir-Low] 81 mg Tablet,Delayed Release (Dr/Ec) 81 mg PO DAILY RF: 0 Tumurix 2,000 mg PO.IVFORM DAILY RF: 0 Primary Care Provider: Mateo Daily Referrals: Mateo Daily MD [Primary Care Provider] - Keep Mk appointment Disposition Disposition: Home, Self Care
--- NOTE | 2021-10-22 13:55 | RAD_ITS ---
STUDY: X-RAY CHEST REASON FOR EXAM: Male, 66 years old. trouble w/ inspiration TECHNIQUE: AP COMPARISON: None. FINDINGS: EKG leads project over the chest. The lungs are clear and expanded. There is no demonstrated pleural abnormality. Normal size heart. Sternal wires and mediastinal surgical clips compatible with prior CABG. Normal visualized pulmonary arteries. Normal visualized aortic arch and descending thoracic aorta. Normal visualized thoracic spine. Right shoulder replacement partially visualized. There is no demonstrated abnormality of the visualized soft tissue structures of the upper abdomen. RAD/Chest PA and Lateral IMPRESSION: Nonacute portable x-ray examination of the chest. Electronically Signed: Miguel Cavanaugh MD ([place]) at 14:13 EDT ,
[2021-10-22 14:31] VITALS: BP 142/83; PULSE 68; RESP 16; O2SAT 96
[2021-10-22 15:07] VITALS: BP 142/83; PULSE 61; RESP 16; O2SAT 94
[2021-10-22 15:30] VITALS: BP 142/83; PULSE 69; RESP 16; O2SAT 95
--- NOTE | 2021-10-22 15:31 | ED.RN ---
discussed BP ranges and okay to take an extra lisinopril if >200 per ED physician.
--- NOTE | 2021-10-25 15:30 | CASEMGMT ---
ED follow-up phone call: Patient states he was to his family doctor this morning and was started on some steroids. Patient states his breathing is about the same like breathing through a straw. RN CM instructed patient that should his breathing not improve with continued steroid use to follow-up with PCP. Patient voiced understanding. Patient had no further questions or concerns at this time.
== END 2021-10-22 15:31 | disposition home or self-care (01) ==
PROVIDERS: Emergency Provider Emergency Medicine; PCP Family Medicine; Visit Provider Emergency Medicine
DX: R06.02 Shortness of breath (principal); Z87.891 Personal history of nicotine dependence; I25.10 Atherosclerotic heart disease of native coronary artery without angina pectoris; E78.5 Hyperlipidemia, unspecified; I10 Essential (primary) hypertension; Z86.16 Personal history of COVID-19; Z79.899 Other long term (current) drug therapy; Z98.2 Presence of cerebrospinal fluid drainage device; Z79.02 Long term (current) use of antithrombotics/antiplatelets
CPT/HCPCS: 70360; 71046; 99282

== ENCOUNTER 2022-10-03 16:20 | Emergency (ER) | payer MEDICARE, SELFPAY ==
[2022-10-03 16:21] VITALS: BP 139/84; PULSE 102; RESP 18; TEMP 35.5; O2SAT 96
[2022-10-03 17:23] VITALS: BMI 44.3
--- NOTE | 2022-10-03 17:50 | EX.ED.DYSGE1 ---
HPI History of Present Illness Chief Complaint: General Illness Narrative Narrative: Patient presents with nausea vomiting diarrhea and generalized weakness. Patient started symptoms about 24 hours ago. He was at a function the day before with a lot of people. He took 2 COVID tests at home both of which were positive. He states he is not coughing or having trouble breathing. He has some myalgias. He has had some decreased energy. He is not having abdominal pain but he is having a lot of vomiting and diarrhea. No blood was seen. He has been trying to eat or drink but cannot. He has nothing at home for nausea and vomiting. This patient also has a history of long COVID. Because of this and just starting with COVID he really would like to take Paxlovid. He used to be on Brilinta but has been off of this for over a week now. He is on a statin and he will hold this. [facility] Medical History Coronary artery disease HLD (hyperlipidemia) HTN (hypertension) Home Medications B-complex with vitamin C 1 tab PO DAILY 04/06/21 [History Last Taken Unknown] diphenhydramine 25 mg-acetaminophen 500 mg tablet (Tylenol PM Extra Strength) 2 tab PO QHS PRN Pain 04/06/21 [History Last Taken Unknown] metoprolol succinate 100 mg capsule sprinkle, ext. release 24 hr 100 mg PO DAILY 04/06/21 [History Last Taken Unknown] rosuvastatin 10 mg tablet (Crestor) 10 mg PO DAILY 04/06/21 [History Last Taken Unknown] Tumurix 2,000 mg PO.IVFORM DAILY 10/07/21 [History Last Taken Unknown] aspirin 81 mg tablet,delayed release 81 mg PO DAILY 10/07/21 [History Last Taken Unknown] lisinopril 5 mg tablet 5 mg PO DAILY 10/07/21 [History Last Taken Unknown] ticagrelor 90 mg tablet (Brilinta) 90 mg PO BID 10/07/21 [History Last Taken Unknown] ondansetron 4 mg disintegrating tablet 4 mg PO Q8H PRN PRN Nausea #10 tabs 10/03/22 [Rx Last Taken Unknown] promethazine 25 mg tablet 25 mg PO Q6H PRN PRN Nausea #10 TABLETS 10/03/22 [Rx Last Taken Unknown] Allergy/AdvReac Type Severity Reaction Status Date / Time Sulfa (Sulfonamide Allergy Hives Verified 10/03/22 16:23 Antibiotics) Surgical History H/O mitral valve repair H/O shoulder surgery Hx of heart artery stent Social History household members: spouse Smoking Status: Former smoker substance use type: does not use ROS ROS ED Constitutional Constitutional ED: Reports subjective; Denies fever(s) Eyes Eyes: Denies change in vision ENT ENT ED: Reports rhinorrhea; Denies ear pain or sore throat Cardiovascular Cardiovascular: Denies chest pain, palpitations or racing heartbeat Respiratory/Chest Respiratory/Chest: Denies cough or dyspnea Gastrointestinal Gastrointestinal: Reports diarrhea and vomiting; Denies abdominal pain, constipation or melena Genitourinary Genitourinary ED: Denies dysuria, hematuria or urinary frequency Musculoskeletal Musculoskeletal: Denies myalgias Integumentary Denies rash Neurologic Neurologic: Denies headache(s) Endocrine Endocrinology: Denies polydipsia or polyuria Hematologic/Lymphatic Hematologic/Lymphatic: Denies easy bleeding or easy bruising Allergic/Immunologic Allergic/Immunologic ED: Denies urticaria EXAM Physical Exam Narrative Exam Narrative: Patient awake and alert. No acute distress. Carries on normal conversation. HEENT shows mildly dry mucous membranes. No exudate. No sinus tenderness. Eyes show no icterus Neck is supple Lungs are clear bilaterally. He has a normal saturation 96% on room air showing no hypoxia. Heart is regular with a rate of about 100. No murmur gallop or rub is heard. Abdomen is soft nontender has normal to slightly increased bowel sounds. But again no tenderness. There is no mass. No rebound or guarding. shows no suprapubic or CVA tenderness Skin shows no rashes or diaphoresis or pallor. Neurologically he is awake alert and appropriate. No focal deficit is noted grossly. Const Vital Signs: 10/03/22 16:21 10/03/22 19:01 Temperature 96 F L Temperature Source Temporal Pulse Rate 102 H Respiratory Rate 18 Blood Pressure 139/84 H 175/90 H Blood Pressure Mean 102 118 Pulse Ox 96 Oxygen Delivery Method Room Air MDM MDM MDM Narrative Medical decision making narrative: Patient CBC shows no marked abnormalities. Electrolytes showed elevated BUN but he was given fluids. Range her electrolytes overall normal. Glucose was up a little bit at 173. This can be followed as an outpatient. Liver function test showed no acute process. I did do a COVID PCR test because this patient wanted Paxlovid and we wanted to have a definitive positive. This test is negative. With this information I do not think Paxlovid is appropriate. I discussed this with the family. I think he still has a viral illness. He has had nausea vomiting and diarrhea. Repeat exam shows that his abdomen is still benign. He is doing much better. Plan will be to get him home. I will write for Zofran and Phenergan so he has some options. We will give him a dose of Phenergan here to help throughout the night since he cannot get meds filled at this time. Lab Data Attestation: I reviewed the patient's lab results. Labs: Laboratory Results - last 24 hr 10/03/22 10/03/22 10/03/22 18:15 18:15 19:47 WBC 10.1 RBC 5.00 Hgb 14.9 Hct 46.4 MCV 92.8 MCH 29.8 MCHC 32.1 RDW Std Deviation 43.5 RDW Coeff of Dia 12.9 Plt Count 227 MPV 10.7 Immature Gran % (Auto) 0.500 Neut % (Auto) 89.8 H Lymph % (Auto) 3.6 L [place] % (Auto) 5.7 Eos % (Auto) 0.2 Baso % (Auto) 0.2 Absolute Neuts (auto) 9.1 H Absolute Lymphs (auto) 0.36 L Nucleated RBC % 0 Differential Comment SCANNED Sodium 136 Potassium 5.1 Chloride 104 Carbon Dioxide 28.0 Anion Gap 4 L BUN 29 H Creatinine 1.23 Estim Creat Clear Calc 58.28 Est GFR (MDRD) Af Amer 76 Est GFR (MDRD) Non-Af 62 BUN/Creatinine Ratio 23.6 H Glucose 173 H Calcium 9.0 Total Bilirubin 0.40 Direct Bilirubin 0.11 AST 33 ALT 51 Alkaline Phosphatase 78 Total Protein 7.3 Albumin 3.4 Globulin 3.9 Lipase 152 COVID-19 (DRAKE) Not Detected EKG Initial EKG: Comments: 2 overMy independent interpretation the patient's EKG showed sinus ALT 68. He did have occasional PAC. No PVCs. Slight first-degree AV block with NV interval of 208 ms. QRS duration was normal. QTc was also a little bit long at 484 ms. No sign of acute ischemia or infarct. Discharge Plan Triage Chief Complaint: General Illness ED Provider: Kevin Chery Dx/Rx/DC Orders Clinical Impression: Nausea vomiting and diarrhea, Dehydration Instructions: ED Vomiting and Diarrhea ... Prescriptions: New promethazine [promethazine] 25 mg tablet 25 mg PO Q6H PRN PRN (Reason: Nausea) Qty: 10 0RF ondansetron [ondansetron] 4 mg tablet,disintegrating 4 mg PO Q8H PRN PRN (Reason: Nausea) Qty: 10 0RF No Action diphenhydramine-acetaminophen [Tylenol PM Extra Strength] 25-500 mg Tablet 2 tab PO QHS PRN (Reason: Pain) B-complex with vitamin C [Vitamin B Complex-C] Tablet 1 tab PO DAILY rosuvastatin [Crestor] 10 mg Tablet 10 mg PO DAILY metoprolol succinate 100 mg Capsule,Sprinkle,Er 24hr 100 mg PO DAILY Brilinta 90 mg tablet 90 mg PO BID Label Comments: TAKE ONE TABLET BY MOUTH TWO TIMES A DAY lisinopril 5 mg tablet 5 mg PO DAILY aspirin [Aspir-Low] 81 mg Tablet,Delayed Release (Dr/Ec) 81 mg PO DAILY Tumurix 2,000 mg PO.IVFORM DAILY Primary Care Provider: Mateo Daily Referrals: Mateo Daily MD [[facility]] - 3-5 Days if not improving Disposition Disposition: Home, Self Care
[2022-10-03] MEDS: Ondansetron 4 MG/2 ML Vial IV (18:21)
[2022-10-03] MEDS: 0.9% Normal Saline 1,000 ML 1000 ML IV (18:21)
[2022-10-03 18:24] LABS: Absolute Lymphocyte Count 0.36 X10^3/uL (0.83-4.51); Absolute Neutrophil Count 9.1 X10^3/uL (2.0-7.7); Basophil# 0.02 X10^3/uL; Basophil% 0.2 % (0-1); Eosinophil# 0.02 X10^3/uL; Eosinophils% 0.2 % (0-5); Hematocrit 46.4 % (40-54); Hemoglobin 14.9 g/dL (13.0-16.5); Lymphocyte # 0.36 X10^3/ul (0.83-4.51); Lymphocyte % 3.6 % (19-41); Mean Corp Hgb Conc 32.1 g/dL (32-36); Mean Corpuscular Hgb 29.8 pg (27.0-32.0); Mean Corpuscular Volume 92.8 fL (80-94); Mean Platelet Vol. 10.7 fl (6.2-12.0); Monocyte# 0.58 X10^3/uL; Monocyte% 5.7 % (0-10); NRBC Flagged by Analyzer 0 % (0-5); Neutrophil # 9.07 X10^3/uL (2.7-7.7); Neutrophil % 89.8 % (47-70); POSITIVE DIFFERENTIAL YES; Platelet Count 227 K/mm3 (150-450); RBC Distribution Width CV 12.9 % (11.6-14.6); RBC Distribution Width SD 43.5 fl (35.1-43.9); White Blood Count 10.1 K/mm3 (4.4-11.0)
[2022-10-03 18:28] LABS: Differential Indicated SCAN CRITERIA MET
[2022-10-03 18:39] LABS: AST(SGOT) 33 U/L (15-37); Alanine Aminotransfer ALT/SGPT 51 U/L (16-61); Albumin, Serum 3.4 g/dL (3.2-5.0); Alkaline Phosphatase 78 U/L (45-117); Anion Gap 4 (5-15); BUN 29 mg/dL (7-18); BUN/Creat Ratio 23.6 RATIO (10-20); Bilirubin, Direct 0.11 mg/dL (0.00-0.30); Chloride 104 mmol/L (98-107); Creatinine, Serum 1.23 mg/dL (0.70-1.30); EST Glomerular Filtration Rate 62 mL/min (>60); Est Glom Filt Rate - Afr Amer 76 mL/min (>60); Estimated Creatinine Clearance 58.28 ml/min; Globulin 3.9 g/dL (2.2-4.2); Glucose 173 mg/dL (74-106); Lipase 152 U/L (73-393); Potassium 5.1 mmol/L (3.5-5.1); Protein, Total 7.3 g/dL (6.4-8.2); Sodium Level 136 mmol/L (136-145)
[2022-10-03 18:52] LABS: Differential Comment SCANNED
[2022-10-03 19:01] VITALS: BP 175/90
[2022-10-03 23:10] VITALS: O2SAT 98
== END 2022-10-03 23:11 | disposition home or self-care (01) ==
LOC: ED 17:59
PROVIDERS: Emergency Provider Emergency Medicine; PCP Family Medicine; Visit Provider Emergency Medicine
DX: R11.2 Nausea with vomiting, unspecified (principal); Z20.822 Contact with and (suspected) exposure to COVID-19; R19.7 Diarrhea, unspecified; E86.0 Dehydration; I25.10 Atherosclerotic heart disease of native coronary artery without angina pectoris; I10 Essential (primary) hypertension; B34.9 Viral infection, unspecified; E78.5 Hyperlipidemia, unspecified; Z87.891 Personal history of nicotine dependence; Z86.16 Personal history of COVID-19
CPT/HCPCS: 80048; 80076; 83690; 85025; 87428; 87635; 96361; 96374; 99282; J7030; J2405; U0003; U0005

== ENCOUNTER 2023-01-26 16:27 | Emergency (ER) | payer MEDICARE, SELFPAY ==
[2023-01-26 16:28] VITALS: BP 180/82; PULSE 76; RESP 14; TEMP 36.3; O2SAT 98; BMI 43.4
[2023-01-26 16:37] VITALS: BP 213/93; PULSE 78; RESP 16; O2SAT 96
[2023-01-26 17:49] LABS: Absolute Lymphocyte Count 1.07 X10^3/uL (0.83-4.51); Absolute Neutrophil Count 12.9 X10^3/uL (2.0-7.7); Basophil# 0.05 X10^3/uL; Basophil% 0.3 % (0-1); Eosinophil# 0.02 X10^3/uL; Eosinophils% 0.1 % (0-5); Hematocrit 44.7 % (40-54); Hemoglobin 14.9 g/dL (13.0-16.5); Lymphocyte # 1.07 X10^3/ul (0.83-4.51); Lymphocyte % 7.1 % (19-41); Mean Corp Hgb Conc 33.3 g/dL (32-36); Mean Corpuscular Hgb 30.1 pg (27.0-32.0); Mean Corpuscular Volume 90.3 fL (80-94); Mean Platelet Vol. 11.4 fl (6.2-12.0); Monocyte# 0.88 X10^3/uL; Monocyte% 5.9 % (0-10); NRBC Flagged by Analyzer 0 % (0-5); Neutrophil # 12.91 X10^3/uL (2.7-7.7); Neutrophil % 86.1 % (47-70); Platelet Count 230 K/mm3 (150-450); RBC Distribution Width CV 12.9 % (11.6-14.6); RBC Distribution Width SD 42.1 fl (35.1-43.9); Red Blood Count 4.95 M/mm3 (4.6-6.2)
--- NOTE | 2023-01-26 17:51 | ED.VIS.GI ---
HPI HPI - GI History of Present Illness Chief Complaint: GI Bleed Informant: patient Narrative Narrative: Patient is a 67-year-old male with history of hypertension and coronary artery disease presenting with bright red blood per rectum. Patient states yesterday he had a hot flash from hell lasting for about 20 minutes. He knows has been constipated for the past few days. He had a very large but painful and hard bowel movement this morning. He states after that he started having bright red blood per rectum. While he was having abdominal he was little bit nauseous and threw up. He states he threw up what seemed to be his coffee. Because of the continued rectal discomfort and bleeding he came to the ER for further evaluation. Denies any chest pain, shortness breath or difficulty breathing. denies any significant abdominal pain. Patient is not on any blood thinners. He was previously on Brilinta but does not need to take that anymore. Has had a colonoscopy in the past few years. Was told he does have diverticulosis. Does not have any history of diverticulitis. PFSH PFS Medical History Coronary artery disease HLD (hyperlipidemia) HTN (hypertension) Home Medications B-complex with vitamin C 1 tab PO DAILY 04/06/21 [History Last Taken Unknown] diphenhydramine 25 mg-acetaminophen 500 mg tablet (Tylenol PM Extra Strength) 2 tab PO QHS PRN Pain 04/06/21 [History Last Taken Unknown] metoprolol succinate 100 mg capsule sprinkle, ext. release 24 hr 100 mg PO DAILY 04/06/21 [History Last Taken Unknown] rosuvastatin 10 mg tablet (Crestor) 10 mg PO DAILY 04/06/21 [History Last Taken Unknown] Tumurix 2,000 mg PO.IVFORM DAILY 10/07/21 [History Last Taken Unknown] aspirin 81 mg tablet,delayed release 81 mg PO DAILY 10/07/21 [History Last Taken Unknown] lisinopril 5 mg tablet 5 mg PO DAILY 10/07/21 [History Last Taken Unknown] ticagrelor 90 mg tablet (Brilinta) 90 mg PO BID 10/07/21 [History Last Taken Unknown] ondansetron 4 mg disintegrating tablet 4 mg PO Q8H PRN PRN Nausea #10 tabs 10/03/22 [Rx Last Taken Unknown] promethazine 25 mg tablet 25 mg PO Q6H PRN PRN Nausea #10 TABLETS 10/03/22 [Rx Last Taken Unknown] cefdinir 300 mg capsule 300 mg PO BID #14 caps 01/26/23 [Rx Last Taken Unknown] metronidazole 500 mg tablet 500 mg PO Q8H 7 days #21 tabs 01/26/23 [Rx Last Taken Unknown] ondansetron 4 mg disintegrating tablet 4 mg PO Q6H PRN nausea and vomiting #20 tabs 01/26/23 [Rx Last Taken Unknown] Allergy/AdvReac Type Severity Reaction Status Date / Time Sulfa (Sulfonamide Allergy Hives Verified 01/26/23 16:28 Antibiotics) Surgical History H/O mitral valve repair H/O shoulder surgery Hx of heart artery stent Social History household members: spouse Smoking Status: Former smoker substance use type: does not use ROS ROS ED Constitutional Constitutional ED: Denies chills or fever(s) Cardiovascular Cardiovascular: Denies chest pain Respiratory/Chest Respiratory/Chest: Denies cough or dyspnea Gastrointestinal Gastrointestinal: Reports constipation and other Details: BRBPR ; Denies abdominal pain, nausea or vomiting Genitourinary Genitourinary ED: Denies dysuria or hematuria Musculoskeletal Musculoskeletal: Denies arthralgias, back pain or myalgias Integumentary Denies rash Neurologic Neurologic: Denies headache(s) Hematologic/Lymphatic Hematologic/Lymphatic: Denies easy bleeding or easy bruising EXAM Physical Exam Const Vital Signs: 01/26/23 16:28 01/26/23 16:37 01/26/23 18:26 Temperature 97.3 F L Temperature Source Temporal Pulse Rate 76 78 Respiratory Rate 14 16 Blood Pressure 180/82 H 213/93 H 175/89 H Blood Pressure Mean 114 133 117 Pulse Ox 98 96 Oxygen Delivery Method Room Air Room Air 01/26/23 21:05 Temperature Temperature Source Pulse Rate 70 Respiratory Rate 16 Blood Pressure 178/77 H Blood Pressure Mean Pulse Ox 98 Oxygen Delivery Method Positive well nourished, well developed and obese General Appearance ED: well developed; Negative for pallor Nutritional Appearance: obese HEENT Reports moist mucous membranes Eyes PERRL and EOMs intact bilaterally Neck supple Resp normal respiratory effort and clear to auscultation bilaterally Cardio regular rate, regular rhythm and no murmurs GI non-tender, non-distended and no masses GI Narrative: Protuberant abdomen. Nontender. On rectal exam patient has an obvious external hemorrhoid with no significant bleeding at this time. On digital rectal exam there is another enlarged hemorrhoid palpated at approximate the 6 o'clock position. Again no obvious bleeding at this time but there is some dried blood noted around the rectum. Extremity full ROM General Extremety ED: Negative for edema General Extremity: Negative for edema Neuro moves all extremities Sensorium / Orientation: alert, oriented to person, oriented to place and oriented to time Motor Exam: Negative for general weakness Psych mental status grossly normal Skin no wounds General Skin Exam: Negative for pallor MDM MDM MDM Narrative Medical decision making narrative: Patient is evaluated for 1 day of bright red blood per rectum. It started after having a particularly hard bowel movement. On exam patient does have signs of bleeding hemorrhoids. He is not on any a blood thinners and takes a daily aspirin. He is no longer on Brilinta. He does have a couple bowel movements with a small amount of blood in it. His vital signs are significant for hypertension. His have a long history of hypertension and has not taken his evening medicine yet. CBC checked out to look for anemia and incidentally found a leukocytosis of 15.0. Kidney function is normal. No anemia is found. Lactate is normal at 1.9 and is normal CMP. Abdomen is soft and nontender. States he may did obtain a CT given this bleeding and decent leukocytosis. CT does show uncomplicated/mild diverticulitis. Given his bleeding I do think he should be treated. I did offer admission for further monitoring of his hemoglobin and bleeding as well as IV antibiotics. Patient states he would like to try outpatient treatment with oral antibiotics. Is given strict return precautions. Both him and his are quite agreeable with this plan of care. Is started on Omnicef and Flagyl. Medications are filled at the bedside to be can take first dose prior to leaving of these medicines. Is given a prescription for Zofran. Currently having any pain she does not require any pain medication. I did discuss sitz bath's given his surgery for outpatient follow-up as he does have these hemorrhoids. Lab Data Attestation: I reviewed the patient's lab results. Labs: Laboratory Results - last 24 hr 01/26/23 01/26/23 17:00 17:40 WBC 15.0 H RBC 4.95 Hgb 14.9 Hct 44.7 MCV 90.3 MCH 30.1 MCHC 33.3 RDW Std Deviation 42.1 RDW Coeff of Dia 12.9 Plt Count 230 MPV 11.4 Immature Gran % (Auto) 0.500 Neut % (Auto) 86.1 H Lymph % (Auto) 7.1 L [place] % (Auto) 5.9 Eos % (Auto) 0.1 Baso % (Auto) 0.3 Absolute Neuts (auto) 12.9 H Absolute Lymphs (auto) 1.07 Nucleated RBC % 0 Sodium 138 Potassium 4.2 Chloride 105 Carbon Dioxide 27.0 Anion Gap 6 BUN 15 Creatinine 0.97 Estim Creat Clear Calc 73.90 Est GFR (MDRD) Af Amer 99 Est GFR (MDRD) Non-Af 82 BUN/Creatinine Ratio 15.5 Glucose 128 H Lactic Acid 1.9 Calcium 8.9 Total Bilirubin 0.40 AST 25 ALT 45 Alkaline Phosphatase 76 Total Protein 7.1 Albumin 3.6 Globulin 3.5 Albumin/Globulin Ratio 1.0 Radiography Diagnostic Testing: Clinical Impression(s) from Imaging Studies Abdomen/Pelvis CT 01/26/23 19:05 IMPRESSION: 1. Sigmoid diverticulosis with minimal wall thickening and inflammation of the mid sigmoid colon compatible with diverticulitis. There is no abscess or perforation. No other acute abnormalities are identified. 2. Moderate coronary artery calcifications. Electronically Signed: Honorio Watson MD at 20:17 EDT , Discharge Plan Triage Chief Complaint: GI Bleed ED Provider: Isabela Ibarra Dx/Rx/DC Orders Clinical Impression: Diverticulitis, BRBPR (bright red blood per rectum), Hemorrhoids Instructions: ED Diverticulitis, ED Hemorrhoids, ED Lower GI Bleeding (Stable) Prescriptions: New cefdinir 300 mg capsule 300 mg PO BID Qty: 14 0RF metronidazole 500 mg tablet 500 mg PO Q8H 7 Days Qty: 21 0RF ondansetron 4 mg tablet,disintegrating 4 mg PO Q6H PRN (Reason: nausea and vomiting) Qty: 20 0RF No Action diphenhydramine-acetaminophen [Tylenol PM Extra Strength] 25-500 mg Tablet 2 tab PO QHS PRN (Reason: Pain) B-complex with vitamin C [Vitamin B Complex-C] Tablet 1 tab PO DAILY rosuvastatin [Crestor] 10 mg Tablet 10 mg PO DAILY metoprolol succinate 100 mg Capsule,Sprinkle,Er 24hr 100 mg PO DAILY Brilinta 90 mg tablet 90 mg PO BID Patient Comments: TAKE ONE TABLET BY MOUTH TWO TIMES A DAY lisinopril 5 mg tablet 5 mg PO DAILY aspirin [Aspir-Low] 81 mg Tablet,Delayed Release (Dr/Ec) 81 mg PO DAILY Tumurix 2,000 mg PO.IVFORM DAILY promethazine [promethazine] 25 mg tablet 25 mg PO Q6H PRN PRN (Reason: Nausea) Qty: 10 0RF ondansetron [ondansetron] 4 mg tablet,disintegrating 4 mg PO Q8H PRN PRN (Reason: Nausea) Qty: 10 0RF Primary Care Provider: Mateo Daily Referrals: Mateo Daily MD [Primary Care Provider] - Rosa Maria Muniz MD [Med Staff - Active Staff] - As Needed Activity Restrictions/Additional Instructions: If you develop a fever, the bleeding increases or if you develop severe pain or if you start to get lightheaded please return to the emergency room. Make sure you are drinking plenty of fluids. Take your blood pressure medicine when you get home as we discussed. Perform sitz bath's and you can use [id number] Preparation H or other rectal steroid cream to help with your hemorrhoids. Disposition Disposition: Home, Self Care Discharge Date/Time: 01/26/23 21:34
[2023-01-26 18:11] LABS: AST(SGOT) 25 U/L (15-37); Alanine Aminotransfer ALT/SGPT 45 U/L (16-61); Albumin, Serum 3.6 g/dL (3.2-5.0); Alkaline Phosphatase 76 U/L (45-117); Anion Gap 6 (5-15); BUN 15 mg/dL (7-18); BUN/Creat Ratio 15.5 RATIO (10-20); Calcium,Total 8.9 mg/dL (8.5-10.1); Chloride 105 mmol/L (98-107); Creatinine, Serum 0.97 mg/dL (0.70-1.30); EST Glomerular Filtration Rate 82 mL/min (>60); Est Glom Filt Rate - Afr Amer 99 mL/min (>60); Globulin 3.5 g/dL (2.2-4.2); Glucose 128 mg/dL (74-106); Potassium 4.2 mmol/L (3.5-5.1); Protein, Total 7.1 g/dL (6.4-8.2); Sodium Level 138 mmol/L (136-145)
[2023-01-26 18:22] LABS: Lactic Acid 1.9 mmol/L (0.4-1.9)
[2023-01-26 18:26] VITALS: BP 175/89
--- NOTE | 2023-01-26 19:05 | CT_ITS ---
EXAM: CT ABDOMEN AND PELVIS WITH INTRAVENOUS CONTRAST CLINICAL INDICATION: abdominal pain, GI bleed, elevated WBC TECHNIQUE: Helically acquired images were obtained of the abdomen and pelvis with intravenous contrast. This CT exam was performed using one or more of the following dose reduction techniques: automated exposure control, adjustment of the mA and/or kV according to patient size, and/or use of iterative reconstruction technique. CONTRAST: IV 100mL [id number] COMPARISON: No relevant prior studies available. FINDINGS: LOWER THORAX: Moderate coronary artery calcifications. Lung bases are clear. No cardiomegaly. No significant pericardial effusion. ABDOMEN: LIVER: The liver is decreased in attenuation compatible with fatty infiltration. GALLBLADDER AND BILE DUCTS: Unremarkable. No calcified gallstones. No gallbladder distention or wall edema. No intra- or extrahepatic biliary ductal dilation. PANCREAS: Unremarkable. No focal cystic or solid mass. SPLEEN: Unremarkable. Normal size without focal cystic or solid mass. ADRENALS: Unremarkable. No nodules. KIDNEYS AND URETERS: Unremarkable. Normal renal size and position. No hydronephrosis. STOMACH AND BOWEL: There is sigmoid diverticulosis. There is minimal wall thickening and inflammation surrounding the mid sigmoid colon compatible with diverticulosis. There is no abscess or perforation. No stomach or bowel distention. PELVIS: APPENDIX: No evidence of acute appendicitis. BLADDER: Unremarkable. REPRODUCTIVE: Unremarkable as visualized. No mass. ABDOMEN and PELVIS: INTRAPERITONEAL SPACE: Unremarkable. No ascites or other fluid collection. No free air. BONES/JOINTS: Unremarkable. No suspicious lytic or blastic abnormality. SOFT TISSUES: Unremarkable. No discrete abdominal or pelvic wall hernia. VASCULATURE: See above. LYMPH NODES: Unremarkable. No enlarged lymph nodes. CT/Abdomen/Pelvis W IV Cont ONLY IMPRESSION: 1. Sigmoid diverticulosis with minimal wall thickening and inflammation of the mid sigmoid colon compatible with diverticulitis. There is no abscess or perforation. No other acute abnormalities are identified. 2. Moderate coronary artery calcifications. Electronically Signed: Honorio Watson MD at 20:17 EDT ,
[2023-01-26 21:05] VITALS: BP 178/77; PULSE 70; RESP 16; O2SAT 98
== END 2023-01-26 21:34 | disposition home or self-care (01) ==
PROVIDERS: Emergency Provider Emergency Medicine; PCP Family Medicine; Visit Provider Emergency Medicine
DX: K57.93 Diverticulitis of intestine, part unspecified, without perforation or abscess with bleeding (principal); K64.9 Unspecified hemorrhoids; K57.30 Diverticulosis of large intestine without perforation or abscess without bleeding; Z87.891 Personal history of nicotine dependence; E78.5 Hyperlipidemia, unspecified; I10 Essential (primary) hypertension; I25.10 Atherosclerotic heart disease of native coronary artery without angina pectoris
CPT/HCPCS: 74177; 80053; 83605; 85025; 99282; Q9967; A4216